=== PATIENT | female | born 1955 ===

== ENCOUNTER 2025-01-17 11:23 | Outpatient (AMB) | payer MEDICARE, SELFPAY | END 2025-01-17 11:25 | disposition home or self-care (01) | LOC: HO.HMGAL 11:23 | PROVIDERS: PCP Obstetrics & Gynecology; Visit Provider Registered Nurse Emergency | DX: J30.89 Other allergic rhinitis (principal) | CPT/HCPCS: 95117; 95165 ==

== ENCOUNTER 2025-02-19 11:36 | Outpatient (AMB) | payer MEDICARE, SELFPAY | END 2025-02-19 11:36 | disposition home or self-care (01) | LOC: HO.HMGAL 11:36 | PROVIDERS: PCP Obstetrics & Gynecology; Visit Provider Registered Nurse Emergency | DX: J30.89 Other allergic rhinitis (principal) | CPT/HCPCS: 95117; 95165 ==